=== PATIENT | female | born 1940 | race Caucasian/White ===

== ENCOUNTER 2016-12-04 10:20 | Outpatient (CLI) | payer MEDICARE, OTHER | END 2016-12-04 23:59 | DX: I10 Essential (primary) hypertension (principal); E03.9 Hypothyroidism, unspecified; E78.5 Hyperlipidemia, unspecified; R61 Generalized hyperhidrosis; E66.9 Obesity, unspecified ==

== ENCOUNTER 2017-02-09 09:44 | Outpatient (CLI) | payer MEDICARE, OTHER ==
--- NOTE | 2017-02-12 17:07 | Mammography Report ---
DIGITAL SCREENING MAMMOGRAM: 02/09/2017 CLINICAL INDICATION: A 76-year-old with family history of breast cancer for screening. COMPARISON: 01/2015, 06/2010, 10/2008, 10/2007. TECHNIQUE: Routine CC and MLO projections were obtained of the breasts. The breasts again demonstrate scattered fibroglandular densities bilaterally. Punctate, typically be nign calcifications are present. No suspicious masses, clustered microcalcifications, or regions of architectural distortion are identified. IMPRESSION: BENIGN FINDINGS. RECOMMENDATION: ROUTINE ANNUAL SCREENING UNLESS OTHERWISE CLINICALLY INDICATED. BIRADS CATEGORY: 2, BENIGN FINDINGS. STANDARD QUALIFYING STATEMENTS 1. This examination was reviewed with the aid of Computed-Aided Detection (CAD). 2. A negative or benign imaging report should not delay biopsy if clinically suspicious findings are present. Consider surgical consultation if warranted. More than 5% of cancers are not identified b y imaging. 3. Dense breasts may obscure an underlying neoplasm. JOB #: [id number] EXT JOB #:[id number]
== END 2017-02-09 09:45 | disposition home or self-care (01) ==
LOC: DI.S 09:44
PROVIDERS: ATTEND Nurse Practitioner Family
DX: Z12.31 Encounter for screening mammogram for malignant neoplasm of breast (principal); Z80.3 Family history of malignant neoplasm of breast
CPT/HCPCS: 77067

== ENCOUNTER 2017-05-18 10:00 | Outpatient (CLI) | payer MEDICARE, OTHER ==
[2017-05-18 18:01] LABS: ALBUMIN/GLOBULIN RATIO 1.7 (1.0-2.2); BILIRUBIN,TOTAL 0.5 mg/dL (0.2-1.0); CALCIUM 9.2 mg/dL (8.5-10.3); CREATININE 1.1 mg/dL (0.4-1.0); POTASSIUM 4.2 mmol/L (3.5-5.0); TOTAL PROTEIN 7.2 g/dL (6.7-8.2)
== END 2017-05-18 10:01 | disposition home or self-care (01) ==
LOC: LAB.S 10:00
PROVIDERS: ATTEND Nurse Practitioner Family
DX: I10 Essential (primary) hypertension (principal)
CPT/HCPCS: 36415; 80053

== ENCOUNTER 2018-03-15 09:27 | Outpatient (CLI) | payer MEDICARE, OTHER ==
[2018-03-15 19:13] LABS: ALBUMIN 4.6 g/dL (3.2-5.5); ALBUMIN/GLOBULIN RATIO 1.7 (1.0-2.2); ALKALINE PHOSPHATASE 77 IU/L (42-121); ALT ALANINE AMINOTRANSFERASE 19 IU/L (10-60); AST ASPARTATE AMINOTRANSFERASE 26 IU/L (10-42); BILIRUBIN,TOTAL 0.8 mg/dL (0.2-1.0); BUN - BLOOD UREA NITROGEN 17 mg/dL (6-20); CALCIUM 9.3 mg/dL (8.5-10.3); CARBON DIOXIDE - CO2 27 mmol/L (21-32); CHLORIDE 105 mmol/L (101-111); CHOL/HDL RATIO 4.2 (<4.4); CHOLESTEROL 249 mg/dL; CREATININE 1.1 mg/dL (0.4-1.0); GFR - MDRD 48 (>89); GLUCOSE 108 mg/dL (70-100); HDL CHOLESTEROL 59 mg/dL; LDL CHOLESTEROL,CALCULATED 166 mg/dL; LDL/HDL RATIO 2.8 (<4.4); SODIUM 139 mmol/L (135-145); TOTAL PROTEIN 7.3 g/dL (6.7-8.2); VLDL CHOLESTEROL 24 mg/dL
== END 2018-03-15 09:28 | disposition home or self-care (01) ==
LOC: LAB.S 09:27
PROVIDERS: ATTEND Nurse Practitioner Family
DX: I10 Essential (primary) hypertension (principal); E03.9 Hypothyroidism, unspecified
CPT/HCPCS: 36415; 80053; 80061; 83721; 84443

== ENCOUNTER 2018-07-10 20:55 | Outpatient (CLI) | payer MEDICARE, OTHER | END 2018-07-10 20:56 | disposition EMS.NT | LOC: EMS 20:55 | PROVIDERS: ATTEND Surgery | DX: M79.89 Other specified soft tissue disorders (principal); M79.622 Pain in left upper arm ==

== ENCOUNTER 2018-07-10 21:41 | Emergency (ER) | payer MEDICARE, OTHER ==
[2018-07-10] MEDS ORDERED: cefTRIAXone 1 GM VIAL IM STA (22:11)
[2018-07-10] MEDS ORDERED: LIDOCAINE 1% 2 ML VIAL SUBQ ONE (22:11)
--- NOTE | 2018-07-10 22:12 | ED Physician Documentation ---
History of Present Illness - Stated complaint Stated Complaint: L ARM SWELLING POST IMMUNIZATION - Chief complaint Chief Complaint: Ext Problem - History obtained from History obtained from: Patient, Family - History of Present Illness Timing: Today - Additonal information Additional information: 77-year-old previously well female has had her immunizations done this year she had a flu shot last week and then yesterday she had a Prevnar 23 injection done into the left deltoid. Today she is developed swelling redness and pain to the left bicep and this is progressed through the day. She has not had fever or chills. Review of Systems Constitutional: denies: Fever, Chills Eyes: denies: Decreased vision Ears: denies: Ear pain Nose: denies: Congestion Throat: denies: Sore throat Respiratory: denies: Cough GI: denies: Vomiting PD PAST MEDICAL HISTORY - Present Medications Home Medications: Ambulatory Orders Medication Instructions Recorded Confirmed Amox/Clav 875/125 [Augmentin] 1 each PO Q12H #20 tablet 07/10/18 Estropipate 0.75 mg PO 07/10/18 07/10/18 Levothyroxine [Synthroid] 100 mcg PO QDAC 07/10/18 - Allergies Allergies/Adverse Reactions: Allergies Allergy/AdvReac Type Severity Reaction Status Date / Time No Known Drug Allergies Allergy Verified 07/10/18 21:51 PD ED PE NORMAL - Vitals Vital signs reviewed: Yes (hypertensive) - General General: Alert and oriented X 3, No acute distress, Well developed/nourished - HEENT HEENT: Atraumatic, PERRL, EOMI - Respiratory Respiratory: No respiratory distress - Back Back: No CVA TTP, No spinal TTP - Derm Derm: Normal color, Warm and dry - Extremities Extremities: Other (The left biceps is swollen red and tender with firm swelling without flutuance. There is not much swelling or redness at the injection site on the deltoid. The majority of the swelling is on the biceps and the outline of the erythema has been marked with a surgical marker at 2200. distal n/v is int act. ) - Neuro Neuro: Alert and oriented X 3, returned materials inspector 2-12 intact, No motor deficit, No sensory deficit, Normal speech Eye Opening: Spontaneous Motor: Obeys Commands Verbal: Oriented GCS Score: 15 - Psych Psych: Normal mood, Normal affect Results - Vitals Vitals: Vital Signs - 24 hr 07/10/18 21:47 Temperature 36.4 C L Heart Rate 67 Respiratory 18 Rate Blood Pressure 148/82 H O2 Saturation 97 Oxygen O2 Source Room air PD MEDICAL DECISION MAKING - ED course Complexity details: reviewed old records, considered differential, d/w patient, d/w family ED course: 77-year-old previously well female with a reaction to a pneumonia shot that looks like she has cellulitis in the right biceps area. There is no fluctuance to the area to be concerned for abscess. She is administered Rocephin 1 [address] IM [address] will place her on some Augmentin and I have indicated to her to expect some improvement in her symptoms over the next day. She is to return to the emergency department should she have increasing symptoms or increasing of the erythema beyond the margins marked. Departure - Departure Disposition: 01 Home, Self Care Clinical Impression: Cellulitis Qualifiers: Site of cellulitis: extremity Site of cellulitis of extremity: upper extremity Laterality: left Qualified Code(s): L03.114 - Cellulitis of left upper limb Condition: Stable Instructions: ED Infec Skin Cellulitis Follow-Up: Dania Gallegos ARNP [Primary Care Provider] - Prescriptions: Amox/Clav 875/125 [Augmentin] 1 each PO Q12H #20 tablet
[2018-07-10 22:47] VITALS: BP 146/82
== END 2018-07-10 22:50 | disposition home or self-care (01) ==
LOC: ED 21:41
DX: L03.114 Cellulitis of left upper limb (principal)
CPT/HCPCS: 96372; 99283

== ENCOUNTER 2019-02-17 11:55 | Emergency (ER) | payer MEDICARE, OTHER ==
[2019-02-17 12:08] VITALS: BP 135/94
== END 2019-02-17 14:35 | disposition left against medical advice (07) ==
LOC: ED 11:55
DX: Z53.21 Procedure and treatment not carried out due to patient leaving prior to being seen by health care provider (principal)

== ENCOUNTER 2019-03-22 09:51 | Outpatient (CLI) | payer MEDICARE, OTHER ==
[2019-03-22 17:16] LABS: BASOPHILS # (AUTO) 0.1 10^3/uL (0.0-0.1); BASOPHILS % (AUTO) 1.5 %; EOSINOPHILS # (AUTO) 0.3 10^3/uL (0.0-0.7); EOSINOPHILS % (AUTO) 4.5 %; HGB - HEMOGLOBIN 16.3 g/dL (12.0-16.0); LYMPHOCYTES # (AUTO) 1.9 10^3/uL (1.5-3.5); MEAN CORPUSCULAR HEMOGLOBIN 29.6 pg (27.0-31.0); MEAN CORPUSCULAR VOLUME 92.7 fL (81.0-99.0); MEAN PLATELET VOLUME 11.3 fL (7.9-10.8); MONOCYTES # (AUTO) 0.6 10^3/uL (0.0-1.0); MONOCYTES % (AUTO) 10.4 %; NEUTROPHILS # (AUTO) 3.1 10^3/uL (1.5-6.6); NEUTROPHILS % (AUTO) 51.4 %; PLT - PLATELET COUNT 205 10^3/uL (130-450); RED CELL DISTRIBUTION WIDTH 13.6 % (12.0-15.0)
[2019-03-22 17:34] LABS: ALBUMIN 4.2 g/dL (3.2-5.5); ALBUMIN/GLOBULIN RATIO 1.4 (1.0-2.2); ALKALINE PHOSPHATASE 84 IU/L (42-121); ALT ALANINE AMINOTRANSFERASE 25 IU/L (10-60); AST ASPARTATE AMINOTRANSFERASE 25 IU/L (10-42); BILIRUBIN,TOTAL 0.5 mg/dL (0.2-1.0); BUN - BLOOD UREA NITROGEN 22 mg/dL (6-20); CALCIUM 9.5 mg/dL (8.5-10.3); CARBON DIOXIDE - CO2 26 mmol/L (21-32); CHLORIDE 107 mmol/L (101-111); CHOL/HDL RATIO 3.9 (<4.4); CHOLESTEROL 212 mg/dL; GFR - MDRD 54 (>89); GLUCOSE 111 mg/dL (70-100); HDL CHOLESTEROL 55 mg/dL; LDL CHOLESTEROL,CALCULATED 133 mg/dL; LDL/HDL RATIO 2.4 (<4.4); SODIUM 141 mmol/L (135-145); TOTAL PROTEIN 7.1 g/dL (6.7-8.2); VLDL CHOLESTEROL 24 mg/dL
[2019-03-22 17:53] LABS: HB2 TOTAL 17.4 g/dL; HEMOGLOBIN A1C 0.62 g/dL; HEMOGLOBIN A1C % 5.4 % (4.6-6.2)
== END 2019-03-22 09:52 | disposition home or self-care (01) ==
LOC: LAB.S 09:51
PROVIDERS: ATTEND Registered Nurse
DX: I10 Essential (primary) hypertension (principal); E03.9 Hypothyroidism, unspecified; E78.5 Hyperlipidemia, unspecified
CPT/HCPCS: 36415; 80053; 80061; 83036; 83721; 84443; 85025

== ENCOUNTER 2020-04-10 07:46 | Outpatient (CLI) | payer MEDICARE, OTHER ==
[2020-04-10 15:13] LABS: BASOPHILS # (AUTO) 0.1 10^3/uL (0.0-0.1); BASOPHILS % (AUTO) 1.2 %; EOSINOPHILS # (AUTO) 0.2 10^3/uL (0.0-0.7); EOSINOPHILS % (AUTO) 4.7 %; HGB - HEMOGLOBIN 15.5 g/dL (12.0-16.0); LYMPHOCYTES # (AUTO) 1.8 10^3/uL (1.5-3.5); LYMPHOCYTES % (AUTO) 35.7 %; MEAN CORPUSCULAR HEMOGLOBIN 30.6 pg (27.0-31.0); MEAN CORPUSCULAR HGB CONC 32.6 g/dL (32.0-36.0); MEAN CORPUSCULAR VOLUME 93.9 fL (81.0-99.0); MEAN PLATELET VOLUME 11.4 fL (7.9-10.8); MONOCYTES # (AUTO) 0.5 10^3/uL (0.0-1.0); MONOCYTES % (AUTO) 9.6 %; NEUTROPHILS # (AUTO) 2.4 10^3/uL (1.5-6.6); NEUTROPHILS % (AUTO) 48.6 %; PLT - PLATELET COUNT 186 10^3/uL (130-450); RED BLOOD COUNT 5.07 10^6/uL (4.20-5.40); RED CELL DISTRIBUTION WIDTH 13.4 % (12.0-15.0); WHITE BLOOD COUNT 4.9 x10^3/uL (4.8-10.8)
[2020-04-10 15:43] LABS: ALBUMIN 4.3 g/dL (3.2-5.5); ALBUMIN/GLOBULIN RATIO 1.5 (1.0-2.2); ALKALINE PHOSPHATASE 86 IU/L (42-121); ALT ALANINE AMINOTRANSFERASE 22 IU/L (10-60); AST ASPARTATE AMINOTRANSFERASE 24 IU/L (10-42); BUN - BLOOD UREA NITROGEN 15 mg/dL (6-20); CALCIUM 9.4 mg/dL (8.5-10.3); CARBON DIOXIDE - CO2 27 mmol/L (21-32); CHLORIDE 104 mmol/L (101-111); CHOL/HDL RATIO 3.9 (<4.4); CHOLESTEROL 205 mg/dL; CREATININE 0.9 mg/dL (0.4-1.0); GLUCOSE 108 mg/dL (70-100); HDL CHOLESTEROL 53 mg/dL; LDL CHOLESTEROL,CALCULATED 135 mg/dL; LDL/HDL RATIO 2.5 (<4.4); SODIUM 138 mmol/L (135-145); TOTAL PROTEIN 7.1 g/dL (6.7-8.2); VLDL CHOLESTEROL 17 mg/dL
[2020-04-10 16:32] LABS: FREE T4 (FREE THYROXINE) 0.96 ng/dL (0.58-1.64)
== END 2020-04-10 07:47 | disposition home or self-care (01) ==
LOC: LAB.S 07:46
PROVIDERS: ATTEND Registered Nurse
DX: I10 Essential (primary) hypertension (principal); E03.9 Hypothyroidism, unspecified; E78.5 Hyperlipidemia, unspecified
CPT/HCPCS: 36415; 80053; 80061; 83721; 84439; 84443; 85025

== ENCOUNTER 2020-05-25 08:18 | Outpatient (CLI) | payer MEDICARE, OTHER | END 2020-05-25 08:19 | disposition home or self-care (01) | LOC: LAB.S 08:18 | PROVIDERS: ATTEND Registered Nurse | DX: E03.9 Hypothyroidism, unspecified (principal) | CPT/HCPCS: 36415; 84443 ==

== ENCOUNTER 2020-10-20 00:12 | Outpatient (CLI) | payer MEDICARE, OTHER | END 2020-10-20 00:13 | disposition critical access hospital (66) | LOC: EMS 00:12 | PROVIDERS: ATTEND Emergency Medicine | DX: Z04.3 Encounter for examination and observation following other accident (principal) | CPT/HCPCS: A0425; A0429 ==

== ENCOUNTER 2020-10-20 00:38 | Emergency (ER) | payer MEDICARE, OTHER ==
--- NOTE | 2020-10-20 00:39 | ED Physician Documentation ---
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 No: Weakness, Numbness Contributing factors: No: Anticoagulated Similar symptoms before: Has not had sx before Recently seen: Not recently seen - Additonal information Additional information: BIBA. patient tripped and fell tonight when her foot got caught in a floor register. she fell to the floor, landing on her right side and experienced sudden onset of severe RUE pain. She indicates the pain is right upper/mid humerus. She is right hand dominant. She denies other injury, denies head injury, denies LOC. She refused IV and refused pain medication en route. Review of Systems Cardiac: reports: Reviewed and negative Respiratory: reports: Reviewed and negative GI: reports: Reviewed and negative Skin: denies: Abrasion (s), Laceration (s) Musculoskeletal: reports: Extremity pain, Extremity swelling. denies: Neck pain, Back pain, Joint pain Neurologic: denies: Focal weakness, Numbness, Headache, Head injury, LOC PD PAST MEDICAL HISTORY - Present Medications Home Medications: Ambulatory Orders Medication Instructions Recorded Confirmed Levothyroxine [Synthroid] 100 mcg PO QDAC 07/10/18 10/20/20 Ondansetron Odt [Zofran] 4 mg TL Q6H PRN #10 tablet 10/20/20 oxyCODONE [Roxicodone] 5 - 10 mg PO Q6H PRN #20 tablet 10/20/20 - Allergies Allergies/Adverse Reactions: Allergies Allergy/AdvReac Type Severity Reaction Status Date / Time No Known Drug Allergies Allergy Verified 10/20/20 00:49 PD ED PE NORMAL - Vitals Vital signs reviewed: Yes - General General: Alert and oriented X 3, Well developed/nourished, Other (appears uncomfortable due to pain as well as appears anxious) - HEENT HEENT: PERRL, EOMI - Neck Neck: No bony TTP - Cardiac Cardiac: RRR, No murmur - Respiratory Respiratory: No respiratory distress, Clear bilaterally - Abdomen Abdomen: Soft, Non tender - Derm Derm: Normal color, Warm and dry - Extremities Extremities: No deformity, No edema - Neuro Neuro: Alert and oriented X 3, wound treatment rn 2-12 intact, No motor deficit (normal right hand dress draper strength, finger abduction), No sensory deficit (RUE LTS intact (hand, fingers)) PD ED PE EXPANDED - Extremities Extremities: Tenderness (right proximal-mid upper arm), Limited ROM (right shoulder, elbow). No: Swelling, Bruising, Abrasion, Laceration Results - Vitals Vitals: Vital Signs - 24 hr 10/20/20 06:24 Heart Rate 56 L Respiratory 18 Rate Blood Pressure 106/54 L O2 Saturation 96 Oxygen O2 Source Room air - Labs Labs: Laboratory Tests 10/20/20 10/20/20 03:08 03:08 WBC 12.7 H RBC 4.89 Hgb 14.8 Hct 46.1 MCV 94.3 MCH 30.3 MCHC 32.1 RDW 13.2 Plt Count 181 MPV 11.0 H Neut # (Auto) 10.7 H Lymph # (Auto) 1.3 L [place] # (Auto) 0.6 Eos # (Auto) 0.1 Baso # (Auto) 0.1 Absolute Nucleated RBC 0.00 Nucleated RBC % 0.0 Sodium 137 Potassium 4.0 Chloride 99 L Carbon Dioxide 28 Anion Gap 10.0 BUN 25 H Creatinine 1.1 H Estimated GFR (MDRD) 48 L Glucose 170 H Calcium 9.1 - Rads (name of study) right humerus xrays Radiology: Prelim report reviewed, See rad report PD MEDICAL DECISION MAKING - ED course Complexity details: reviewed results, re-evaluated patient, considered different ial, d/w patient, d/w family ED course: patient improved with 4mg IM morphine which facilitated xrays. Xrays reveal "displaced comminuted spiral fracture of the proximal to mid right humerus. Mild angulation" per radiologist's interpretation. An IV was then established for further pain control with anticipation of need for repeat dosing and titration. She had further improvement with 2mg IV morphine. I discussed the H+P and xray results with Dr. Kirk (continuous pickling line pickler orthopedics; he reviewed the images as well). He advised outpatient sling and prescription analgesia and outpatient follow up; he says that if discharge is not feasible (such as intractable pain), can admit to hospitalist service. He says surgical repair might be beneficial but more likely will heal without the need for surgical intervention. He also says that the type of nail that would be used would take at least a day to be delivered to [facility]. I discussed the case with Dr. Lopez (hospitalist for [facility]); in the course of our discussion, it was realized that patient would not meet any indications for admission to the hospital as long as adequate pain control could be achieved and that she is neurovascularly intact. On repeat exams, I find that her pain is well controlled. She has no evidence of compartment syndrome and she is NVI in RUE. I had two phone conversations with patient's daughter and she is comfortable with d/c home to her care. Patient also tells me she understands with, and is comfortable with, d/c with outpatient follow up. Departure - Departure Disposition: Home, Self Care Clinical Impression: Humerus fracture Condition: Good Instructions: ED Fx Upper Ext, ED Sling Follow-Up: Guru Kirk MD [Provider Admit Priv/Credential] - (Call Thursday to arrange for next available appointment) Prescriptions: oxyCODONE [Roxicodone] 5 - 10 mg PO Q6H PRN #20 tablet PRN Reason: Pain Ondansetron Odt [Zofran] 4 mg TL Q6H PRN #10 tablet PRN Reason: Nausea / Vomiting Discharge Date/Time: 10/20/20 06:53
[2020-10-20] MEDS ORDERED: MORPHINE 2 MG/ML CARPUJECT IM STA (00:47)
[2020-10-20] MEDS ORDERED: SODIUM CHLORIDE 0.9% 1,000 ML IV STA (02:40)
[2020-10-20] MEDS ORDERED: MORPHINE 2 MG/ML CARPUJECT IVP STA ×2 (02:40→06:13)
[2020-10-20 03:17] LABS: BASOPHILS # (AUTO) 0.1 10^3/uL (0.0-0.1); BASOPHILS % (AUTO) 0.4 %; EOSINOPHILS # (AUTO) 0.1 10^3/uL (0.0-0.7); EOSINOPHILS % (AUTO) 0.5 %; HCT - HEMATOCRIT 46.1 % (37.0-47.0); HGB - HEMOGLOBIN 14.8 g/dL (12.0-16.0); LYMPHOCYTES # (AUTO) 1.3 10^3/uL (1.5-3.5); LYMPHOCYTES % (AUTO) 10.5 %; MEAN CORPUSCULAR HEMOGLOBIN 30.3 pg (27.0-31.0); MEAN CORPUSCULAR HGB CONC 32.1 g/dL (32.0-36.0); MEAN CORPUSCULAR VOLUME 94.3 fL (81.0-99.0); MONOCYTES # (AUTO) 0.6 10^3/uL (0.0-1.0); MONOCYTES % (AUTO) 4.4 %; NEUTROPHILS # (AUTO) 10.7 10^3/uL (1.5-6.6); NEUTROPHILS % (AUTO) 83.9 %; PLT - PLATELET COUNT 181 10^3/uL (130-450); RED BLOOD COUNT 4.89 10^6/uL (4.20-5.40); RED CELL DISTRIBUTION WIDTH 13.2 % (12.0-15.0); WHITE BLOOD COUNT 12.7 x10^3/uL (4.8-10.8)
[2020-10-20 03:26] LABS: CALCIUM 9.1 mg/dL (8.5-10.3); CREATININE 1.1 mg/dL (0.4-1.0)
[2020-10-20] MEDS ORDERED: oxyCODONE 5 MG TABLET PO STA (04:28)
[2020-10-20] MEDS ORDERED: ONDANSETRON ODT 4 MG TABLET TL STA (04:28)
[2020-10-20] MEDS ORDERED: oxyCODONE/ACET 5/325 Prepack 4 PO STA (06:02)
[2020-10-20 06:25] VITALS: BP 106/54
--- NOTE | 2020-10-20 07:23 | XRAY Report ---
PROCEDURE: Humerus RT INDICATIONS: fall, right arm pain/tenderness TECHNIQUE: AP and lateral views of the humerus were acquired. COMPARISON: None FINDINGS: Bones: Markedly comminuted displaced fracture of the shaft and neck and likely extending into the hea d of the humerus. It appears to involve the greater tuberosity. No suspicious bony lesions. Soft tissues: No suspicious soft tissue calcifications. IMPRESSION: Markedly comminuted displaced fracture of the shaft and neck and likely extending into the head of th e humerus. A preliminary report with the above findings was provided at the time of the study by [facility]. Reviewed by: Manjinder Bai MD on 10/20/2020 6:22 AM DEANNE Approved by: Manjinder Bai MD on 10/20/2020 6:22 AM [facility] Station ID: [id number]
== END 2020-10-20 06:53 | disposition home or self-care (01) ==
LOC: EDUNIT# → ED 00:38
DX: S42.301A Unspecified fracture of shaft of humerus, right arm, initial encounter for closed fracture (principal); W18.09XA Striking against other object with subsequent fall, initial encounter; Y92.009 Unspecified place in unspecified non-institutional (private) residence as the place of occurrence of the external cause
CPT/HCPCS: 36415; 73060; 80048; 85025; 96372; 96374; 96376; 99284; A9270; Q0162

== ENCOUNTER 2020-10-22 08:00 | Outpatient (CLI) | payer MEDICARE, OTHER ==
--- NOTE | 2020-10-22 16:24 | XRAY Report ---
PROCEDURE: Toe(s) RT INDICATIONS: R GREAT TOE PX TECHNIQUE: 2 views of the right first toe(s) acquired. COMPARISON: None FINDINGS: Bones: No fractures or dislocations. No suspicious bony lesions. Soft tissues: No suspicious soft tissue densities. IMPRESSION: No acute fracture. No osseous lesion. If symptoms and/or clinical suspicion for pathology continue, f urther assessment with repeat plain films, or advanced imaging (e.g., CT, MRI, or bone scan) is recom mended for further assessment. Reviewed by: Brenda Lee MD on 10/22/2020 4:23 PM PDT Approved by: Brenda Lee MD on 10/22/2020 4:23 PM PDT Station ID: [id number]
== END 2020-10-22 23:59 | disposition home or self-care (01) ==
LOC: DI.N 08:00
PROVIDERS: ATTEND Physician Assistant
DX: M79.674 Pain in right toe(s) (principal)

== ENCOUNTER 2020-11-23 07:28 | Outpatient (CLI) | payer MEDICARE, OTHER ==
--- NOTE | 2020-11-23 16:08 | XRAY Report ---
PROCEDURE: Humerus RT INDICATIONS: DISPLACED COMMINUTED SHAFT OF DISTAL RT ARM TECHNIQUE: 2 views of the humerus were acquired. COMPARISON: Plain films dated 10/20/2020 FINDINGS: Bones: Moderately displaced comminuted fracture of the mid and proximal humerus is not significantly changed, allowing for differences in projection. No suspicious bony lesions. Soft tissues: No suspicious soft tissue calcifications. IMPRESSION: No definite change in humeral fracture. Reviewed by: Brenda Lee MD on 11/23/2020 4:07 PM PDT Approved by: Brenda Lee MD on 11/23/2020 4:07 PM PDT Station ID: [id number]
== END 2020-11-23 23:59 | disposition home or self-care (01) ==
LOC: DI.N 07:28
PROVIDERS: ATTEND Physician Assistant
DX: S42.351A Displaced comminuted fracture of shaft of humerus, right arm, initial encounter for closed fracture (principal)

== ENCOUNTER 2020-12-24 13:57 | Outpatient (CLI) | payer MEDICARE, OTHER ==
--- NOTE | 2020-12-24 16:26 | XRAY Report ---
PROCEDURE: Humerus RT INDICATIONS: DISPLACED COMMINUTED FX OF SHAFT OF R HUMERUS TECHNIQUE: 2 views of the humerus were acquired. COMPARISON: 11/23/2020 FINDINGS: Bones: Moderately displaced comminuted fracture of the mid/proximal humerus is present, as before. N o suspicious bony lesions. Soft tissues: No suspicious soft tissue calcifications. IMPRESSION: No significant change in humeral fracture. Reviewed by: Brenda Lee MD on 12/24/2020 4:25 PM PDT Approved by: Brenda Lee MD on 12/24/2020 4:25 PM PDT Station ID: [id number]
== END 2020-12-24 23:59 | disposition home or self-care (01) ==
LOC: DI.N 13:57
PROVIDERS: ATTEND Physician Assistant
DX: S42.201D Unspecified fracture of upper end of right humerus, subsequent encounter for fracture with routine healing (principal)

== ENCOUNTER 2021-01-29 16:26 | Outpatient (CLI) | payer MEDICARE, OTHER ==
--- NOTE | 2021-01-30 08:53 | XRAY Report ---
PROCEDURE: Humerus RT INDICATIONS: DISPLACED COMMINUTED FX OF SHAFT OF R HUMERUS TECHNIQUE: 2 views of the humerus were acquired. COMPARISON: Similar plain films 12/24/2020 FINDINGS: Bones: No previously unidentified fractures or dislocations. No suspicious bony lesions. There is mild blurring of the fracture margins but definite osseous union is not identified. Soft tissues: No suspicious soft tissue calcifications. IMPRESSION: The comminuted fracture planes are in near identical positioning from the comparison study in mid December of this year but definite osseous union across the fracture planes is not yet visualized. Reviewed by: Rodrigo Mcgrath MD on 01/30/2021 8:51 AM PDT Approved by: Rodrigo Mcgrath MD on 01/30/2021 8:51 AM PDT Station ID: [id number]
== END 2021-01-29 16:27 | disposition home or self-care (01) ==
LOC: DI.N 16:26
PROVIDERS: ATTEND Orthopaedic Surgery
DX: S42.351A Displaced comminuted fracture of shaft of humerus, right arm, initial encounter for closed fracture (principal)

== ENCOUNTER 2021-03-12 07:50 | Outpatient (CLI) | payer MEDICARE, OTHER ==
--- NOTE | 2021-03-13 06:06 | XRAY Report ---
PROCEDURE: Humerus RT INDICATIONS: DISPLACED COMMINUTED FX OF SHAFT OF R HUMERUS TECHNIQUE: 2 views of the humerus were acquired. COMPARISON: Prior humeral series dated 01/29/2021 FINDINGS: Bones: No significant interval change in appearance or alignment of comminuted, mildly displaced and angulated proximal humeral shaft fracture. Fracture lucencies are still visible. No bridging callus. Background osteoarthritic changes. Bones are osteopenic. No suspicious bony lesions. Bones are oste openic. Soft tissues: No suspicious soft tissue calcifications. IMPRESSION: No significant change in appearance or alignment of comminuted, mildly displaced and angulated proxim al humeral shaft fracture. Reviewed by: SILVIANO Villanueva on 03/13/2021 6:05 AM PDT Approved by: Rodrigo Mcgrath MD on 03/13/2021 6:05 AM PDT Station ID: [id number]
== END 2021-03-12 23:59 | disposition home or self-care (01) ==
LOC: DI.N 07:50
PROVIDERS: ATTEND Orthopaedic Surgery
DX: S42.351D Displaced comminuted fracture of shaft of humerus, right arm, subsequent encounter for fracture with routine healing (principal)

== ENCOUNTER 2021-06-19 12:17 | Outpatient (CLI) | payer MEDICARE, OTHER ==
[2021-06-19 12:55] LABS: BASOPHILS # (AUTO) 0.1 10^3/uL (0.0-0.1); BASOPHILS % (AUTO) 0.9 %; EOSINOPHILS # (AUTO) 0.3 10^3/uL (0.0-0.7); EOSINOPHILS % (AUTO) 4.5 %; HCT - HEMATOCRIT 50.8 % (37.0-47.0); HGB - HEMOGLOBIN 16.7 g/dL (12.0-16.0); LYMPHOCYTES # (AUTO) 2.1 10^3/uL (1.5-3.5); MEAN CORPUSCULAR HEMOGLOBIN 30.3 pg (27.0-31.0); MEAN CORPUSCULAR HGB CONC 32.9 g/dL (32.0-36.0); MEAN CORPUSCULAR VOLUME 92.2 fL (81.0-99.0); MEAN PLATELET VOLUME 10.7 fL (7.9-10.8); MONOCYTES # (AUTO) 0.5 10^3/uL (0.0-1.0); MONOCYTES % (AUTO) 8.3 %; NEUTROPHILS # (AUTO) 3.4 10^3/uL (1.5-6.6); NEUTROPHILS % (AUTO) 53.1 %; PLT - PLATELET COUNT 203 10^3/uL (130-450); RED BLOOD COUNT 5.51 10^6/uL (4.20-5.40); RED CELL DISTRIBUTION WIDTH 13.2 % (12.0-15.0); WHITE BLOOD COUNT 6.4 x10^3/uL (4.8-10.8)
[2021-06-19 12:58] LABS: ALBUMIN 4.7 g/dL (3.2-5.5); ALBUMIN/GLOBULIN RATIO 1.5 (1.0-2.2); ALKALINE PHOSPHATASE 93 IU/L (42-121); ALT ALANINE AMINOTRANSFERASE 21 IU/L (10-60); AST ASPARTATE AMINOTRANSFERASE 24 IU/L (10-42); BILIRUBIN,TOTAL 0.9 mg/dL (0.2-1.0); BUN - BLOOD UREA NITROGEN 18 mg/dL (6-20); CALCIUM 10.4 mg/dL (8.5-10.3); CARBON DIOXIDE - CO2 29 mmol/L (21-32); CHLORIDE 101 mmol/L (101-111); CHOL/HDL RATIO 4.1 (<4.4); CHOLESTEROL 228 mg/dL; GFR - MDRD 53 (>89); GLUCOSE 110 mg/dL (70-100); HDL CHOLESTEROL 56 mg/dL; LDL CHOLESTEROL,CALCULATED 137 mg/dL; LDL/HDL RATIO 2.4 (<4.4); POTASSIUM 4.4 mmol/L (3.5-5.0); SODIUM 141 mmol/L (135-145); TOTAL PROTEIN 7.9 g/dL (6.7-8.2); TRIGLYCERIDES 173 mg/dL; VLDL CHOLESTEROL 35 mg/dL
[2021-06-19 13:03] LABS: THYROID STIMULATING HORMONE 3.68 uIU/mL (0.34-5.60)
== END 2021-06-19 12:18 | disposition home or self-care (01) ==
LOC: LAB 12:17
PROVIDERS: ATTEND Registered Nurse
DX: I10 Essential (primary) hypertension (principal); E03.9 Hypothyroidism, unspecified; E78.5 Hyperlipidemia, unspecified
CPT/HCPCS: 36415; 80053; 80061; 83721; 84443; 85025

== ENCOUNTER 2021-07-11 14:52 | Outpatient (CLI) | payer MEDICARE, OTHER ==
[2021-07-11 15:24] LABS: CALCIUM, IONIZED 1.27 mmol/L (1.15-1.33); VBG PH 7.364 (7.31-7.41)
== END 2021-07-11 14:53 | disposition home or self-care (01) ==
LOC: LAB 14:52
PROVIDERS: ATTEND Registered Nurse
DX: E83.52 Hypercalcemia (principal); D75.1 Secondary polycythemia
CPT/HCPCS: 36415; 82330; 82668; 83970

== ENCOUNTER 2022-07-09 14:26 | Outpatient (CLI) | payer MEDICARE, OTHER ==
[2022-07-09 14:41] LABS: BASOPHILS # (AUTO) 0.1 10^3/uL (0.0-0.1); EOSINOPHILS # (AUTO) 0.2 10^3/uL (0.0-0.7); EOSINOPHILS % (AUTO) 2.9 %; HCT - HEMATOCRIT 48.2 % (37.0-47.0); HGB - HEMOGLOBIN 15.7 g/dL (12.0-16.0); LYMPHOCYTES # (AUTO) 1.6 10^3/uL (1.5-3.5); LYMPHOCYTES % (AUTO) 27.7 %; MEAN CORPUSCULAR HEMOGLOBIN 30.1 pg (27.0-31.0); MEAN CORPUSCULAR HGB CONC 32.6 g/dL (32.0-36.0); MEAN CORPUSCULAR VOLUME 92.3 fL (81.0-99.0); MEAN PLATELET VOLUME 10.6 fL (7.9-10.8); MONOCYTES # (AUTO) 0.5 10^3/uL (0.0-1.0); NEUTROPHILS # (AUTO) 3.4 10^3/uL (1.5-6.6); NEUTROPHILS % (AUTO) 59.2 %; PLT - PLATELET COUNT 176 10^3/uL (130-450); RED BLOOD COUNT 5.22 10^6/uL (4.20-5.40); RED CELL DISTRIBUTION WIDTH 13.3 % (12.0-15.0); WHITE BLOOD COUNT 5.8 x10^3/uL (4.8-10.8)
[2022-07-09 14:55] LABS: ALBUMIN/GLOBULIN RATIO 1.3 (1.0-2.2); ALKALINE PHOSPHATASE 70 IU/L (42-121); ALT ALANINE AMINOTRANSFERASE 20 IU/L (10-60); AST ASPARTATE AMINOTRANSFERASE 25 IU/L (10-42); BILIRUBIN,TOTAL 0.8 mg/dL (0.2-1.0); BUN - BLOOD UREA NITROGEN 20 mg/dL (6-20); CALCIUM 9.5 mg/dL (8.5-10.3); CARBON DIOXIDE - CO2 30 mmol/L (21-32); CHLORIDE 99 mmol/L (101-111); CHOL/HDL RATIO 3.7 (<4.4); CHOLESTEROL 193 mg/dL; GFR - MDRD 53 (>89); GLUCOSE 101 mg/dL (70-100); HDL CHOLESTEROL 52 mg/dL; LDL CHOLESTEROL,CALCULATED 117 mg/dL; LDL/HDL RATIO 2.3 (<4.4); SODIUM 137 mmol/L (135-145); TOTAL PROTEIN 7.2 g/dL (6.7-8.2); TRIGLYCERIDES 119 mg/dL; VLDL CHOLESTEROL 24 mg/dL
[2022-07-09 15:07] LABS: THYROID STIMULATING HORMONE 2.36 uIU/mL (0.34-5.60)
== END 2022-07-09 14:27 | disposition home or self-care (01) ==
LOC: LAB 14:26
PROVIDERS: ATTEND Registered Nurse
DX: E03.9 Hypothyroidism, unspecified (principal); Z79.899 Other long term (current) drug therapy; Z13.220 Encounter for screening for lipoid disorders
CPT/HCPCS: 36415; 80053; 80061; 83721; 84443; 85025

== ENCOUNTER 2023-08-13 10:23 | Outpatient (CLI) | payer MEDICARE, OTHER ==
[2023-08-13 14:38] LABS: BASOPHILS # (AUTO) 0.1 10^3/uL (0.0-0.1); BASOPHILS % (AUTO) 1.3 %; EOSINOPHILS # (AUTO) 0.2 10^3/uL (0.0-0.7); EOSINOPHILS % (AUTO) 2.8 %; HCT - HEMATOCRIT 47.4 % (37.0-47.0); HGB - HEMOGLOBIN 14.9 g/dL (12.0-16.0); LYMPHOCYTES # (AUTO) 1.1 10^3/uL (1.5-3.5); LYMPHOCYTES % (AUTO) 18.5 %; MEAN CORPUSCULAR HEMOGLOBIN 29.8 pg (27.0-31.0); MEAN CORPUSCULAR HGB CONC 31.4 g/dL (32.0-36.0); MEAN CORPUSCULAR VOLUME 94.8 fL (81.0-99.0); MEAN PLATELET VOLUME 10.9 fL (7.9-10.8); MONOCYTES # (AUTO) 0.5 10^3/uL (0.0-1.0); MONOCYTES % (AUTO) 7.9 %; NEUTROPHILS # (AUTO) 4.2 10^3/uL (1.5-6.6); NEUTROPHILS % (AUTO) 69.2 %; PLT - PLATELET COUNT 199 10^3/uL (130-450); RED CELL DISTRIBUTION WIDTH 13.2 % (12.0-15.0); WHITE BLOOD COUNT 6.1 x10^3/uL (4.8-10.8)
[2023-08-13 15:59] LABS: ALBUMIN 4.3 g/dL (3.2-5.5); ALBUMIN/GLOBULIN RATIO 1.5 (1.0-2.2); ALKALINE PHOSPHATASE 84 IU/L (42-121); ALT ALANINE AMINOTRANSFERASE 16 IU/L (10-60); AST ASPARTATE AMINOTRANSFERASE 20 IU/L (10-42); BILIRUBIN,TOTAL 0.7 mg/dL (0.2-1.0); BUN - BLOOD UREA NITROGEN 15 mg/dL (6-20); CALCIUM 9.8 mg/dL (8.5-10.3); CARBON DIOXIDE - CO2 32 mmol/L (21-32); CHLORIDE 102 mmol/L (101-111); CHOL/HDL RATIO 3.5 (<4.4); CHOLESTEROL 180 mg/dL; CREATININE 1.1 mg/dL (0.6-1.3); GFR - MDRD 48 (>89); GLUCOSE 100 mg/dL (74-104); HDL CHOLESTEROL 51 mg/dL; LDL CHOLESTEROL,CALCULATED 103 mg/dL; POTASSIUM 4.2 mmol/L (3.5-4.5); SODIUM 140 mmol/L (135-145); TOTAL PROTEIN 7.1 g/dL (6.4-8.9); TRIGLYCERIDES 130 mg/dL (48-352); VLDL CHOLESTEROL 26 mg/dL
[2023-08-13 16:28] LABS: THYROID STIMULATING HORMONE 2.54 uIU/mL (0.34-5.60)
== END 2023-08-13 10:24 | disposition home or self-care (01) ==
LOC: LAB.S 10:23
PROVIDERS: ATTEND Registered Nurse
DX: E78.5 Hyperlipidemia, unspecified (principal); E03.9 Hypothyroidism, unspecified; Z79.899 Other long term (current) drug therapy
CPT/HCPCS: 36415; 80053; 80061; 83721; 84443; 85025

== ENCOUNTER 2024-03-29 14:37 | Outpatient (CLI) | payer MEDICARE, OTHER ==
--- NOTE | 2024-03-29 18:15 | XRAY Report ---
PROCEDURE: Humerus RT INDICATIONS: ARM PAIN,RIGHT TECHNIQUE: 2 views of the humerus were acquired. COMPARISON: 03/12/2021 FINDINGS: Bones: Nonunion of the mid shaft humeral comminuted fracture compared to 2020. Slight widening of th e AC interval partially seen. Soft tissues: Possible nodular calcification projects over right chest, seen in 2020. 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 Reviewed by: Skip Lew MD on 03/29/2024 6:13 PM PDT Approved by: Skip Lew MD on 03/29/2024 6:13 PM PDT Station ID: [id number]
== END 2024-03-29 14:38 | disposition home or self-care (01) ==
LOC: DI.S 14:37
PROVIDERS: ATTEND Registered Nurse
DX: S42.351K Displaced comminuted fracture of shaft of humerus, right arm, subsequent encounter for fracture with nonunion (principal)

== ENCOUNTER 2024-04-05 09:36 | Emergency (ER) | payer MEDICARE, OTHER ==
--- NOTE | 2024-04-05 09:49 | ED Physician Documentation ---
PD HPI LOWER EXT INJURY - Stated complaint Stated Complaint: LT ELBOW LAC ON NAIL - Chief complaint Chief Complaint: Wound - History obtained from History obtained from: Patient (83-year-old woman who is not up-to-date on tetanus scraped her left elbow on a chele piece of yard art 3 days ago.) PD PAST MEDICAL HISTORY - Past Medical History Past Medical History: Yes Cardiovascular: None Respiratory: None Neuro: None Endocrine/Autoimmune: HyPOthyroidism GI: None DELPHI DEVELOPER: None : None HEENT: None Psych: None Musculoskeletal: None Derm: None - Past Surgical History Past Surgical History: Yes Ortho: Other /DELPHI DEVELOPER: Hysterectomy, Oophrectomy - Present Medications Home Medications: Ambulatory Orders Medication Instructions Recorded Confirmed Levothyroxine [Synthroid] 100 mcg PO QDAC 07/10/18 10/20/20 Ondansetron Odt [Zofran] 4 mg TL Q6H PRN #10 tablet 10/20/20 oxyCODONE [Roxicodone] 5 - 10 mg PO Q6H PRN #20 tablet 10/20/20 - Allergies Allergies/Adverse Reactions: Allergies Allergy/AdvReac Type Severity Reaction Status Date / Time No Known Drug Allergies Allergy Verified 04/05/24 09:46 - Social History Does the pt smoke?: No Smoking Status: Never smoker Does the pt drink ETOH?: No Does the pt have substance abuse?: No - Immunizations Immunizations are current?: Yes - POLST Patient has POLST: No PD ED PE NORMAL - Vitals Vital signs reviewed: Yes - General General: Alert and oriented X 3, No acute distress - Extremities Extremities: Other (On the left elbow there is a very shallow linear scrape without signs of infection. No tenderness or limited range of motion.) - Neuro Neuro: Alert and oriented X 3 Results - Vitals Vitals: Vital Signs - 24 hr 04/05/24 09:43 Temperature 36.4 C L Heart Rate 56 L Respiratory 20 Rate Blood Pressure 158/92 H O2 Saturation 98 Oxygen O2 Source Room air PD Medical Decision Making - ED course ED course: She has a 3-day old scrape on the elbow. It is quite shallow and does not need specific wound care but her tetanus needed updating. Departure - Departure Disposition: 01 Home, Self Care Clinical Impression: Abrasion of left elbow Qualifiers: Encounter type: initial encounter Qualified Code(s): S50.312A - Abrasion of left elbow, initial encounter Condition: Good Record reviewed to determine appropriate education?: Yes Instructions: ED Abrasion Comments: Note for your records that she received a Tdap shot today. As far as wound care, the wound is quite shallow you just can wash it with soap and water and keep it covered with a Band-Aid. Return for new or worsening symptoms.
[2024-04-05 10:02] VITALS: BP 158/92; O2SAT 98
[2024-04-05] MEDS: TETANUS/DIPHTHERIA/PERTUSSIS 0.5 ML SYRINGE IM ONE (10:04)
== END 2024-04-05 10:05 | disposition home or self-care (01) ==
LOC: ED 09:36
DX: S50.312A Abrasion of left elbow, initial encounter (principal); W26.8XXA Contact with other sharp object(s), not elsewhere classified, initial encounter; E03.9 Hypothyroidism, unspecified; Z79.899 Other long term (current) drug therapy; Z23 Encounter for immunization
CPT/HCPCS: 90471; 99283

== ENCOUNTER 2024-04-10 11:03 | Emergency (ER) | payer MEDICARE, OTHER ==
[2024-04-10 11:20] VITALS: BP 136/94; O2SAT 98
--- NOTE | 2024-04-10 11:37 | ED Physician Documentation ---
History of Present Illness - Stated complaint Stated Complaint: R ARM PX POST FALL - Chief complaint Chief Complaint: Ext Problem - History obtained from History obtained from: Patient - History of Present Illness Timing: Today Pain level max: 2 Pain level now: 1 - Additonal information Additional information: 83-year-old female who presents to the emergency department after ground-level fall yesterday. She states that she is not having any significant pain today but is concerned because she fractured her right humerus 3 years ago. She wants to make sure that there is no recurrent fracture. Has mild pain at the site, 1- 2 out of 10. Worse with movement, better with rest. No head, neck, back pain. Not on blood thinners. Denies any other injuries. No lacerations. Tetanus up-to-date. 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 : None HEENT: None Psych: None Musculoskeletal: None Derm: None - Past Surgical History Past Surgical History: Yes Ortho: Other /DROPPER TANK STORAGE: Hysterectomy, Oophrectomy - Present Medications Home Medications: Ambulatory Orders Medication Instructions Recorded Confirmed Levothyroxine [Synthroid] 100 mcg PO QDAC 07/10/18 10/20/20 Ondansetron Odt [Zofran] 4 mg TL Q6H PRN #10 tablet 10/20/20 oxyCODONE [Roxicodone] 5 - 10 mg PO Q6H PRN #20 tablet 10/20/20 - Allergies Allergies/Adverse Reactions: Allergies Allergy/AdvReac Type Severity Reaction Status Date / Time No Known Drug Allergies Allergy Verified 04/10/24 11:15 - Social History Does the pt smoke?: No Smoking Status: Never smoker Does the pt drink ETOH?: No Does the pt have substance abuse?: No - Immunizations Immunizations are current?: Yes - POLST Patient has POLST: No PD ED PE NORMAL - Vitals Vital signs reviewed: Yes - General General: Alert and oriented X 3, No acute distress - HEENT HEENT: Atraumatic, PERRL, Moist mucous membranes - Neck Neck: Supple, no meningeal sign, No bony TTP - Cardiac Cardiac: RRR, Strong equal pulses - Respiratory Respiratory: No respiratory distress, Clear bilaterally - Abdomen Abdomen: Soft, Non tender, Non distended - Back Back: No spinal TTP (No midline tenderness to palpation or percussion. No step- off or deformity.) - Derm Derm: Warm and dry - Extremities Extremities: Other (Full range of motion of all extremities without pain. Has chronic deformity to the right midshaft humerus. Neurovascular intact. No bruising to the humerus.) - Neuro Neuro: Alert and oriented X 3 - Psych Psych: Normal mood, Normal affect Results - Vitals Vitals: Vital Signs - 24 hr 04/10/24 04/10/24 11:15 13:04 Temperature 36.7 C 36.7 C Heart Rate 64 64 Respiratory 16 16 Rate Blood Pressure 136/94 H 136/94 H O2 Saturation 98 98 Oxygen O2 Source Room air - Rads (name of study) Right humerus x-ray Relevant Findings:: Final report received, See rad report PD Medical Decision Making - ED course Complexity details: reviewed results, re-evaluated patient, considered differential, d/w patient ED course: Patient is status post a ground-level fall, 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 Unchanged on x-ray. Can utilize Motrin or Tylenol for any pain at home. Ambulating without difficulty. Using both of her arms freely and without pain. GCS 15. No evidence of head injury, neck or back pain. We will continue supportive care and have her follow-up with her doctor for further care. Patient counseled regarding signs and symptoms for which I believe and urgent re-evaluation would be necessary. Patient with good understanding of and agreement to plan and is comfortable going home at this time This document was made in part using voice recognition software. While efforts are made to proofread this document, sound alike and grammatical errors may occur. Departure - Departure Disposition: 01 Home, Self Care Clinical Impression: Ground-level fall Condition: Good Instructions: ED Mechanical Fall Follow-Up: Ana Wynn ARNP [Primary Care Provider] - Comments: Your x-ray does not show any significant abnormalities from your prior. Please follow-up with your doctor for further care. Please return if you worsen. You can use Motrin or Tylenol as needed for pain. Forms: PCP List Discharge Date/Time: 04/10/24 13:04
--- NOTE | 2024-04-10 12:47 | XRAY Report ---
PROCEDURE: Humerus RT INDICATIONS: fall, pain, prior fx 3 years ago TECHNIQUE: 2 views of the humerus were acquired. COMPARISON: Right humerus radiograph dated March 29, 2024 and March 12, 2021. FINDINGS: Bones: Similar appearance of nonunion of the mid humeral shaft comminuted fracture compared to prior dated March 29, 2024. Stable alignment with angulation. No suspicious bony lesions. Soft tissues: No suspicious soft tissue calcifications or masses. Calcified granulomas in the righ t lung. IMPRESSION: Similar appearance of nonunion of the mid humeral shaft comminuted fracture compared to prior dated A ug2023. Given the history of an interval fall, this may represent an acute on chronic fractur e versus nonunion which cannot be distinguished due to a 3 year gap in imaging. Recommend continued i maging surveillance. Reviewed by: Elie Mcgowan MD on 04/10/2024 11:46 AM [facility] Approved by: Elie Mcgowan MD on 04/10/2024 11:46 AM CARM[facility] Station ID: [id number]
== END 2024-04-10 13:04 | disposition home or self-care (01) ==
LOC: ED 11:03
DX: M79.601 Pain in right arm (principal); W18.30XA Fall on same level, unspecified, initial encounter; E03.9 Hypothyroidism, unspecified; Z79.899 Other long term (current) drug therapy
CPT/HCPCS: 99283